=== PATIENT | female | born 1935 | race Caucasian/White ===

== ENCOUNTER 2016-12-07 14:29 | Observation (INO) | payer MEDICARE ==
[2016-12-07 15:05] LABS: #Eosinphils 0.3 thou/uL (0.0-0.7); #Lymphocytes 2.6 thou/uL (1.20-3.40); #Monocytes 1.1 thou/uL (0.11-0.59); #Neutrophils 8.7 thou/uL (1.40-6.50); %Basophils 0.3 % (0.0-1.0); %Eosinophils 2.6 % (0.0-10.0); %Lymphocytes 20.4 % (21.0-51.0); %Monocytes 8.6 % (0.0-10.0); Hematocrit 47.9 % (36.0-47.0); Mean Platelet Volume 9.3 fL (7.4-10.4); Red Blood Cell (RBC) Count 5.16 mill/uL (4.20-5.40); White Blood Cell (WBC) Count 12.8 thou/uL (4.8-10.8)
[2016-12-07] MEDS ORDERED: Metoprolol Tartrate 5 MG/5 ML VIAL ONE (15:21)
[2016-12-07 15:30] LABS: ALT (SGPT) 16 U/L (8-55); AST (SGOT) 26 U/L (5-34); Alkaline Phosphatase 87 U/L (40-150); Anion Gap 15 mmol/L (10-20); BUN (Urea Nitrogen) 22 mg/dL (9.8-20.1); Bilirubin, Total 0.8 mg/dL (0.2-1.2); CK (CPK) 59 U/L (29-168); Calc. Creatinine Clearance 0 mL/min (70-130); Calcium 11.1 mg/dL (7.8-10.44); Carbon Dioxide 24 mmol/L (23-31); Chloride 102 mmol/L (98-107); Estimated GFR-MDRD 56; Globulin 4.1 g/dL (2.4-3.5); Lipase 24 U/L (8-78); Protein, Total 9.3 g/dL (6.0-8.3)
[2016-12-07 15:34] LABS: Troponin I Less than 0.010 ng/mL (< 0.028)
--- NOTE | 2016-12-07 15:42 | RAD ---
PORTABLE AP CHEST: Date: 12-07-16 History: Heart palpitations. Atrial fibrillation after exercising. FINDINGS: Cardiac silhouette is magnified by projection but is at the upper limits of normal to borderline inc reased in size. Pulmonary vasculature is within normal limits. There is an epicardial fat pad at the left lung base. Lungs are otherwise clear. There appears to be a rim of osteophytes involving the l eft humeral head. Vascular calcifications seen in the thoracic aorta. IMPRESSION: No acute cardiopulmonary process. POS: MAU
[2016-12-07 18:55] LABS: Troponin I 0.031 ng/mL (< 0.028)
[2016-12-07] MEDS ORDERED: Enoxaparin Sodium 60 MG/0.6 ML SYRINGE ONE (19:17)
[2016-12-07] MEDS ORDERED: Enoxaparin Sodium 80 MG/0.8 ML SYRINGE SC SCH (21:00)
[2016-12-07] MEDS ORDERED: Enoxaparin Sodium 80 MG/0.8 ML SYRINGE SC ONE (21:00)
[2016-12-07] MEDS ORDERED: Acetaminophen 325 MG TAB PO PRN (21:10)
[2016-12-07] MEDS ORDERED: hydrALAZINE 20 MG/ML VIAL SLOW IVP PRN (21:10)
[2016-12-07] MEDS ORDERED: HYDROcodone/Acetaminophen 5/325 mg Tablet PO PRN (21:10)
[2016-12-07] MEDS ORDERED: Nitroglycerin 0.4 MG TAB (25 Tab Bottle) SL PRN (21:10)
[2016-12-07] MEDS ORDERED: Zolpidem Tartrate 5 MG TAB PO PRN (21:10)
[2016-12-07] MEDS ORDERED: Sodium Chloride 0.9% 1,000 ML IV SCH (21:10)
[2016-12-07] MEDS ORDERED: Ondansetron HCl/PF 4 MG/2 ML Vial IVP PRN (21:10)
[2016-12-07 23:00] VITALS: BMI 29.9
--- NOTE | 2016-12-07 23:25 | HP ---
CHIEF COMPLAINT: Palpitations. HISTORY OF PRESENT ILLNESS: This is an 81-year-old pleasant lady, who was at [facility] AV valve replacement done on 09/29/[address] Aguilar, was doing physical therapy and really had a good session. When she went and rested, the alarm went off and she found herself to be a little we ak and shortness of breath and with a heart rate in the 140s. The patient was sent to our emergency room for further evaluation and treatment. The patient denies any fever or chills, admits to some diarrhea, because she thinks she takes laxatives on daily basis. No chest pain, no shortness of sarah ath. PAST MEDICAL HISTORY: Significant for high blood pressure, AV value replacement. PAST SURGICAL HISTORY: Aortic valve replacement on 09/2016, exploratory laparotomy done at age 18 l joby time back, appendectomy, hysterectomy, tonsillectomy, and bilateral knee replacement. SOCIAL HISTORY: Does not smoke, drink, or do recreational drugs. ALLERGIES: Allergic to COREG, which gives her bradycardia. PENICILLIN gives her rash. MEDICATIONS: Norvasc, Synthroid, statin, lisinopril, Plavix. FAMILY HISTORY: Negative for diabetes and hypertension. REVIEW OF SYSTEMS: Significant for no fever, no chills, no headache, no eye pain, no hearing loss, no latencies. No cough, no chest pain. Cardiovascular: As per HPI. Positive for diarrhea, no dys uria, no polyuria, no memory or mood changes noted. PHYSICAL EXAMINATION: VITAL SIGNS: Blood pressure is 122/51, pulse of 78, respirations 18, 98 degrees. GENERAL: Patient is lying in bed in no apparent distress. HEENT: Atraumatic and normocephalic. Pupils equally round, react to light. Extraocular movements intact. Mucous membranes moist. NECK: Supple. No JVD. CHEST: Breath sounds heard. There are no rales or rhonchi. HEART: S1, S2 normal, irregularly irregular rhythm. ABDOMEN: Soft, obese. EXTREMITIES: No cyanosis, clubbing, edema. Distal pulses present. NEUROLOGIC: Alert, awake, oriented. No cranial deficits. No sensorimotor deficits. LABORATORY DATA: WBC count is 12.8, hemoglobin is 15.4. Chest x-ray is negative. Troponin 0.03. CK is 59. Potassium is 3.7, creatinine is 0.9, calcium is 11.1, albumin is 5.2. ASSESSMENT AND PLAN: 1. Atrial fibrillation with rapid ventricular response. The patient got IV metoprolol and IV Cardi zem in the ER, and her heart rate right now is 65. Patient will be put on Plavix. We will continue the Plavix from home medications and give her 1 dose of Lovenox and follow Cardiology recommendatio ns. We will do echocardiogram and check thyroid function status post AV placement. We will follow Cardiology plan. 2. Hypothyroidism. Continue Synthroid. 3. Hyperlipidemia, stable. 4. Hypertension, stable. We will do UA, Lovenox for deep venous thrombosis prophylaxis. I will wo rk with Cardiology and further caring for the patient.
[2016-12-07 23:34] LABS: Bilirubin Negative (Negative); Blood, Urine Negative (Negative); Glucose, Urine (Dipstick) Negative (Negative); Ketone, Urine Negative (Negative); Nitrite Negative (Negative); Protein, Urine (Dipstick) Negative (Neg-Trace); Urobilinogen 0.2 mg/dL (0.2-1.0)
[2016-12-07 23:37] LABS: Bacteria/HPF None Seen HPF (None Seen); Hyaline Casts/LPF 0-3 HYALINE CAST LPF (0-3 Hyaline); RBC/HPF 0-3 HPF (0-3); Squamous Epithelial 0-3 HPF (0-3)
[2016-12-07] MEDS ORDERED: ALPRAZolam 1 MG TAB PO PRN (23:55)
[2016-12-08] MEDS ORDERED: Amlodipine 5 MG TAB PO SCH ×2 (00:15→09:00)
[2016-12-08] MEDS ORDERED: Lisinopril 20 MG TAB PO SCH ×2 (00:15→09:00)
[2016-12-08] MEDS ORDERED: Simvastatin 20 MG TAB PO SCH ×2 (00:15→21:00)
[2016-12-08 04:47] LABS: #Eosinphils 0.2 thou/uL (0.0-0.7); #Lymphocytes 1.5 thou/uL (1.20-3.40); #Neutrophils 7.7 thou/uL (1.40-6.50); %Basophils 0.1 % (0.0-1.0); %Eosinophils 1.6 % (0.0-10.0); %Lymphocytes 14.4 % (21.0-51.0); %Monocytes 10.1 % (0.0-10.0); Hematocrit 39.8 % (36.0-47.0); Mean Platelet Volume 9.3 fL (7.4-10.4); Red Blood Cell (RBC) Count 4.32 mill/uL (4.20-5.40); White Blood Cell (WBC) Count 10.4 thou/uL (4.8-10.8)
[2016-12-08] MEDS ORDERED: Levothyroxine Sodium 50 MCG TAB PO SCH (06:00)
[2016-12-08 06:58] LABS: Anion Gap 11 mmol/L (10-20); BUN (Urea Nitrogen) 21 mg/dL (9.8-20.1); Calc. Creatinine Clearance 59 mL/min (70-130); Calcium 9.4 mg/dL (7.8-10.44); Carbon Dioxide 24 mmol/L (23-31); Chloride 107 mmol/L (98-107); Estimated GFR-MDRD 70
[2016-12-08] MEDS ORDERED: Clopidogrel Bisulfate 75 MG TAB PO SCH (09:00)
--- NOTE | 2016-12-08 13:01 | PDOC.PN ---
- Subjective Encounter Start Date: 12/08/16 Encounter Start Time: 12:59 Patient seen and examined. No new complaints. No overnight events - Objective MAR Reviewed: Yes Vital Signs & Weight: Vital Signs (12 hours) Temp Pulse Resp BP BP Pulse Ox 12/08/16 11:02 98.6 F 62 16 145/61 H 98 12/08/16 09:32 58 L 132/70 12/08/16 07:25 98.7 F 58 L 16 132/70 98 12/08/16 07:15 98.7 F 73 14 12/08/16 04:04 98.7 F 73 14 151/72 H 97 12/08/16 01:33 95 Weight Weight 153 lb 1 oz I&O: 12/07/16 12/08/16 12/09/16 06:59 06:59 06:59 Intake Total 500 Output Total 425 Balance 75 Result Diagrams: 12/08/16 04:00 12/08/16 04:00 Phys Exam - Physical Examination Constitutional: NAD HEENT: PERRLA Neck: no JVD Respiratory: no wheezing Cardiovascular: no significant murmur Gastrointestinal: non-tender Musculoskeletal: pulses present Neurological: normal sensation Psychiatric: A&O x 3 Skin: normal turgor Dx/Plan (1) SVT (supraventricular tachycardia) Code(s): I47.1 - SUPRAVENTRICULAR TACHYCARDIA Status: Acute (2) Dehydration Code(s): E86.0 - DEHYDRATION Status: Acute (3) S/p TAVR (transcatheter aortic valve replacement), bioprosthetic Code(s): Z95.3 - PRESENCE OF XENOGENIC HEART VALVE Status: Acute (4) HTN (hypertension) Code(s): I10 - ESSENTIAL (PRIMARY) HYPERTENSION Status: Acute (5) Hypothyroid Code(s): E03.9 - HYPOTHYROIDISM, UNSPECIFIED Status: Acute - Plan * rate controlled * f/u card plan
--- NOTE | 2016-12-08 14:53 | EKG ---
Test Reason : Blood Pressure : / mmHG Vent. Rate : 079 BPM Atrial Rate : 079 BPM P-R Int : 206 ms QRS Dur : 094 ms QT Int : 374 ms P-R-T Axes : 076 010 047 degrees QTc Int : 428 ms Sinus rhythm with Premature atrial complexes Septal infarct , age undetermined cannot be excluded Nonspecific ST abnormalty Abnormal ECG Confirmed by OUSMANE CHRISTIANSON ([id number]) on 12/08/2016 2:53:09 PM Referred By: VIRAJ Confirmed By:OUSMANE CHRISTIANSON
[2016-12-08 15:46] VITALS: BP 167/86; TEMP 97.9
--- NOTE | 2016-12-09 05:46 | ADD-CON ---
ADDENDUM DATE OF CONSULTATION: 12/08/2016 DATE OF ADMISSION: 12/07/2016 INDICATION FOR CONSULTATION: An 81-year-old female with palpitations. HISTORY OF PRESENT ILLNESS: This very pleasant 81-year-old female who has been followed by me for s everal years. She recently underwent a TAVR, implantation of aortic valve due to severe aortic valv e stenosis for which she had followed for many years until she started beginning more symptomatic an d then she was decided that she need to undergo valve replacement. She had been doing very well sin ce the valve replacement and had gone to rehabilitation yesterday and noticed that she was getting s omewhat fatigued and short of breath and had fast heart rate and she was then presented to the emerg ency room and was found to have a rapid heart rate, which appears to be possible atrial flutter, but since then has converted back to sinus rhythm with a regular rate. She is feeling fine and wants t o go home. She denies any significant chest discomfort or any other symptoms. She has been doing w ell. She denied any other complaints and has been very happy with the aortic valve replacement. At this time, her examination is unremarkable. She has a regular rate and rhythm. Her chest is clear . There is no lower extremity edema and has no significant aortic valve murmur. This has now resol deion. Please refer to the notes already dictated by the nurse practitioner. I would agree with her assessment and plan. She will be monitored for any further rapid heart rate at home by her family m embers or herself and also she will be monitored at the rehabilitation center when she presents ther e for her rehabilitation. Should she have further episodes, she may need to undergo further evaluat ion, possibly even an ablation. We will need to see if we can adjust her medications. She has been taking diltiazem. We will need to reinstate this medication as well as possibly even low dose of b eta blockers. Her vital signs have been stable. Her blood pressure stays on the high side anywhere between 132/71 to 167/86. Her heart rate is in the 50s-80s. At this time, she remains in sinus rh ythm. We will make the decision prior to discharge as far as she will need to be started on beta-bl ockers. She had no significant history of coronary artery disease in the past. As long as she does not become severely bradycardic, she may do well with low dose of beta blockers. If not, then cert ainly we may try also calcium blockers in the form of diltiazem if necessary.
--- NOTE | 2016-12-09 05:47 | DIS ---
DATE OF ADMISSION: 12/07/2016 DATE OF DISCHARGE: 12/08/2016 DIAGNOSES ON DISCHARGE: 1. Supraventricular tachycardia. 2. Hypothyroidism. 3. Hyperlipidemia. 4. Hypertension. 5. Status post transcatheter aortic valve replacement. BRIEF HOSPITAL COURSE: This is an 81-year-old pleasant lady who was apparently in her usual state o f health, was doing rehabilitation after the TAVR when she started having some palpitations. She wa s brought to the emergency room for that. EKG showed an undetermined rhythm with a rate of 140. It looked like atrial fibrillation when she came in, and then she was given Cardizem and the rhythm sl owed down. She was admitted further to the hospital for this for monitoring. She was given p.o. Ca rdizem 30 mg p.o. q.6 hours and Cardiology evaluated her. They checked the rhythm, and thought that it was probably just a SVT, which had been precipitated by some dehydration, and after the hydratio n and the Cardizem use, had come back to normal. They recommended for now, no Cardizem for now or a ny antiarrhythmics for now. This had good blood pressure control, hydration, and outpatient followu p with Cardiology would be the planned next step. The patient is feeling much better. Right now, s he is good to go back to the rehab, and continue physical therapy. She is asked to come back to the emergency room in case symptoms recur. Total time for this discharge took 35 minutes. DISCHARGE MEDICATIONS: Discharge medications are the same as admit medications.
== END 2016-12-08 17:07 | disposition home or self-care (01) ==
LOC: ERS 14:29 → 2SW 20:55
PROVIDERS: ADMIT Internal Medicine; ATTEND Internal Medicine
DX: I47.1 Supraventricular tachycardia (principal); E03.9 Hypothyroidism, unspecified; E78.5 Hyperlipidemia, unspecified; I10 Essential (primary) hypertension; I48.91 Unspecified atrial fibrillation; E86.0 Dehydration; Z79.02 Long term (current) use of antithrombotics/antiplatelets; Z79.899 Other long term (current) drug therapy; Z88.0 Allergy status to penicillin; Z88.8 Allergy status to other drugs, medicaments and biological substances; Z96.653 Presence of artificial knee joint, bilateral; Z95.3 Presence of xenogenic heart valve; Z90.49 Acquired absence of other specified parts of digestive tract; Z90.710 Acquired absence of both cervix and uterus; Z98.890 Other specified postprocedural states
CPT/HCPCS: 71010; 80048; 81001; 82550; 82553; 83630; 83690; 84484 ×2; 85025; 87015; 87045; 87046; 87324; 87449 ×2; 87899 ×2; 93005 ×2; 93798; 96372; 96374; 96375; 99285; G0378; 36415; 80053; 84443; 93010; J1650

== ENCOUNTER 2016-12-13 16:19 | Inpatient (IN) | payer MEDICARE ==
[2016-12-13] MEDS ORDERED: Enoxaparin Sodium 80 MG/0.8 ML SYRINGE ONE (17:29)
[2016-12-13] MEDS ORDERED: Piperacillin/Tazobactam 4.5 GM VIAL ONE (17:38)
[2016-12-13] MEDS ORDERED: Ondansetron ODT 4 MG TAB PO PRN (17:42)
[2016-12-13] MEDS ORDERED: HYDROcodone/Acetaminophen 5/325 mg Tablet PO PRN (17:42)
[2016-12-13] MEDS ORDERED: Acetaminophen 325 MG TAB PO PRN (17:42)
[2016-12-13] MEDS ORDERED: HYDROcodone/Acetaminophen 10/325 mg Tablet PO PRN (17:42)
[2016-12-13 18:36] LABS: Troponin I 0.032 ng/mL (< 0.028)
[2016-12-13 20:36] LABS: Troponin I 0.021 ng/mL (< 0.028)
[2016-12-13] MEDS ORDERED: traZODone HCl 50 MG TAB PO SCH (21:00)
[2016-12-13] MEDS ORDERED: Enoxaparin Sodium 80 MG/0.8 ML SYRINGE SC SCH (21:00)
--- NOTE | 2016-12-13 21:25 | HP ---
DATE OF ADMISSION: 12/13/2016 PRIMARY CARE PHYSICIAN: Alexey Marquez M.D., out of town. His phone number is [phone]. CHIEF COMPLAINT: Palpitations. HISTORY OF PRESENT ILLNESS: Ms. Bray is a pleasant 81-year-old female with a history of hyperten adia, aortic valve replacement, hypothyroidism, osteopenia, and previous atrial fibrillation. The trevor flanagan was actually admitted here from 12/07/2016-12/08/2017 for atrial fibrillation with rapid vent ricular response. She was seen by Dr. Ventura, but apparently spontaneously converted and was sent hussein e. Today, she had the acute onset of palpitations, was seen at the outside ER and found to have a h eart rate in the 150s and atrial fibrillation again. She was subsequently transferred here for furt her workup. She denies any chest pain or shortness of breath, no nausea, vomiting, diarrhea, consti pation. No fevers, chills or sweats. No sputum production. In the emergency department out at the outside facility, she was given 10 mg bolus of Cardizem x2 an d started on a Cardizem drip. On arrival here, heart rates are controlled in the low 100s. She is currently feeling better, however, the workup was otherwise negative. She has no other current comp laints. PAST MEDICAL HISTORY: 1. Hypertension. 2. Aortic valve replacement by Dr. Aguilar. 3. Hypothyroidism. 4. Osteopenia. 5. Paroxysmal atrial fibrillation, now. PAST SURGICAL HISTORY: Includes, 1. Percutaneous aortic valve replacement in 09/2016. 2. Exploratory laparotomy in 1953. 3. Appendectomy. 4. Hysterectomy. 5. Bilateral total knee arthroplasty. 6. Tonsillectomy. HOME MEDICATIONS: 1. Norvasc 5 mg p.o. b.i.d. 2. Synthroid 50 mcg daily. 3. Lisinopril, she thinks 40 mg b.i.d. 4. Plavix 75 mg p.o. q.a.m. 5. Fosamax 75 mg every week. 6. Xanax 1 mg p.o. at bedtime. 7. Aspirin 81 mg p.o. q.p.m. ALLERGIES: COREG causes bradycardia. PENICILLIN causes rash. FAMILY HISTORY: Negative for diabetes, hypertension, clots or bleeding. SOCIAL HISTORY: Negative for habits x3. REVIEW OF SYSTEMS: A 10-point review of systems was performed and negative for all other systems ex cept as stated as per HPI. PHYSICAL EXAMINATION: VITAL SIGNS: Temperature 98.7, pulse 108, blood pressure 134/69, respiratory rate 19, and satting 9 8% on room air. GENERAL: She is awake. She is alert. She is oriented x3. She is an obese, elderly female who alfonso ears to be in no acute distress. HEENT: Normocephalic and atraumatic. Pupils equal and reactive bilaterally. Mucous membranes are moist. No visible lesions. No thrush. NECK: Supple. She had no lymphadenopathy, JVD or thyromegaly with normal carotid upstrokes. She h as no bruits. CHEST: Lungs are clear to auscultation bilaterally. She has some faint bibasilar crackles that tanner ar with deep inspiration. She has no prolonged expiratory phase. CARDIOVASCULAR: Has an irregularly irregular rate, is slightly tachycardic. She has a faint 2-3/6 systolic ejection murmur. I do not hear any diastolic murmurs. ABDOMEN: Obese, is nontender and nondistended. I cannot palpate internal organs. She has no rebou nd, rigidity or guarding with normoactive bowel sounds. EXTREMITIES: Show no cyanosis, no clubbing, no edema. MUSCULOSKELETAL: Normal to inspection. She has joints that are uninflamed without palpable joint e ffusions. Her previous incisions are well healed. NEUROLOGIC: Cranial nerves II-XII are grossly intact without any focal neurologic deficits, she has a normal speech pattern, and 5/5 strength. SKIN: Warm, moist, and well perfused. She has no rashes or lesions. LABORATORY EVALUATION: CMP is within normal limits. Glucose 187. BNP slightly elevated at 186. T roponin I was normal at 0.032 and INR was 1.1. RADIOGRAPHIC STUDIES: Chest x-ray, portable showed no acute cardiopulmonary disease. ASSESSMENT AND PLAN: 1. Paroxysmal atrial fibrillation. The patient is currently back in atrial fibrillation. She is s table on her current Cardizem drip, so we will continue. We will ask Dr. Aguilar to evaluate her. Tro naveen was negative, but will trend these over the next 12-16 hours. We will watch on telemetry and placed in observation. 2. Hypertension, on Norvasc, lisinopril. We will continue these for now. 3. Osteopenia, on Fosamax, we will hold. 4. Hypothyroidism on Synthroid. We will check a TSH. 5. History of aortic valve replacement by Dr. Aguilar. Currently, appears stable. We will place the patient on gastrointestinal and deep venous thrombosis with Lovenox 40 mg subcu da saravanan and on for gastrointestinal prophylaxis, Pepcid 20 mg p.o. b.i.d.
[2016-12-13 21:32] VITALS: BMI 29.6
[2016-12-13] MEDS: Famotidine 20 MG TAB PO SCH (21:54)
[2016-12-14] MEDS: Diltiazem HCl 125 MG, Admixture Fee 1 EACH in Sodium Chloride 0.9% 100 ML SLOW IVP SCH ×2 (04:06→17:01)
[2016-12-14 04:53] LABS: #Basophils 0.1 thou/uL (0.0-0.2); #Eosinphils 0.3 thou/uL (0.0-0.7); #Lymphocytes 1.6 thou/uL (1.20-3.40); #Monocytes 0.9 thou/uL (0.11-0.59); #Neutrophils 6.3 thou/uL (1.40-6.50); %Basophils 0.7 % (0.0-1.0); %Eosinophils 2.8 % (0.0-10.0); %Lymphocytes 17.7 % (21.0-51.0); %Monocytes 9.6 % (0.0-10.0); Hematocrit 38.1 % (36.0-47.0); Mean Platelet Volume 8.8 fL (7.4-10.4); Red Blood Cell (RBC) Count 4.14 mill/uL (4.20-5.40); White Blood Cell (WBC) Count 9.1 thou/uL (4.8-10.8)
[2016-12-14 05:08] LABS: Anion Gap 12 mmol/L (10-20); BUN (Urea Nitrogen) 16 mg/dL (9.8-20.1); Calc. Creatinine Clearance 60 mL/min (70-130); Calcium 9.2 mg/dL (7.8-10.44); Carbon Dioxide 21 mmol/L (23-31); Chloride 112 mmol/L (98-107); Estimated GFR-MDRD 72; Magnesium 2.1 mg/dL (1.6-2.6)
[2016-12-14 05:15] LABS: Troponin I 0.029 ng/mL (< 0.028)
[2016-12-14] MEDS: Famotidine 20 MG TAB PO SCH ×2 (08:44→22:00)
[2016-12-14] MEDS: Enoxaparin Sodium 80 MG/0.8 ML SYRINGE SC SCH ×2 (08:44→22:01)
--- NOTE | 2016-12-14 10:05 | PDOC.PN ---
- Subjective Encounter Start Date: 12/14/16 Encounter Start Time: 10:03 Patient seen at bedside. No further palpitations, no SOB or C/P. Still remains on Cardizem drip. - Objective Resuscitation Status: Resuscitation Status FULL:Full Resuscitation MAR Reviewed: Yes Vital Signs & Weight: Vital Signs (12 hours) Temp Pulse Resp BP 12/14/16 04:00 98.1 F 77 18 110/59 L Weight Weight 151 lb 3.2 oz I&O: 12/13/16 12/14/16 12/15/16 06:59 06:59 06:59 Intake Total 220 Output Total 600 Balance -380 Result Diagrams: 12/14/16 04:17 12/14/16 04:17 Phys Exam - Physical Examination Constitutional: NAD HEENT: moist MMs Neck: no JVD Respiratory: clear to auscultation bilateral Cardiovascular: irregular Gastrointestinal: soft, non-tender Musculoskeletal: pulses present Neurological: moves all 4 limbs Psychiatric: normal affect, A&O x 3 Dx/Plan (1) Atrial fibrillation Code(s): I48.91 - UNSPECIFIED ATRIAL FIBRILLATION Status: Acute Qualifiers: Atrial fibrillation type: paroxysmal Qualified Code(s): I48.0 - Paroxysmal atrial fibrillation (2) HTN (hypertension) Code(s): I10 - ESSENTIAL (PRIMARY) HYPERTENSION Status: Acute Qualifiers: Hypertension type: essential hypertension Qualified Code(s): I10 - Essential (primary) hypertension (3) Hypothyroid Code(s): E03.9 - HYPOTHYROIDISM, UNSPECIFIED Status: Acute - Plan cont current plan of care, social media community manager, out of bed/ambulate * Continue with Cardizem GTT. * Will require anticoagulation for CVA prophylaxis. Currently on Lovenox * Check TSH * Await cardiology input (further chemical intervention vs CARY vs RFA)
[2016-12-14] MEDS: Bisacodyl 5 MG TAB PO PRN (13:34)
[2016-12-14] MEDS ORDERED: Amiodarone HCl 450 MG in Dextrose 5% in Water 250 ML IVPB SCH ×2 (16:15)
[2016-12-14] MEDS ORDERED: Amiodarone HCl 150 MG, Admixture Fee 1 EACH in Dextrose 5% in Water 100 ML IVPB SCH ×3 (16:30)
[2016-12-14 18:14] LABS: ALT (SGPT) 19 U/L (8-55); AST (SGOT) 19 U/L (5-34); Alkaline Phosphatase 52 U/L (40-150); Bilirubin, Direct 0.2 mg/dL (0.1-0.3); Bilirubin, Total 0.5 mg/dL (0.2-1.2); Protein, Total 6.3 g/dL (6.0-8.3)
[2016-12-14 18:18] LABS: Prothrombin Time 14.3 SEC (12.0-14.7)
[2016-12-14] MEDS: Warfarin Sodium 5 MG TAB PO SCH (19:27)
[2016-12-14] MEDS ORDERED: Simvastatin 5 MG TAB PO SCH (21:00)
[2016-12-14] MEDS ORDERED: Temazepam 15 MG CAP PO SCH (21:00)
[2016-12-14] MEDS: Simvastatin 5 MG TAB PO SCH ×2 (22:00→22:18)
[2016-12-14] MEDS: Amlodipine 5 MG TAB PO SCH (22:01)
--- NOTE | 2016-12-14 22:03 | CON ---
DATE OF CONSULTATION: 12/14/2016 HISTORY OF PRESENT ILLNESS: Maureen Bray is a pleasant 81-year-old white female with a history of severe aortic stenosis. She is status post TAVR [place] [address] Aguilar. She presented on 11/2016, with rapid heartbeat after finishing her cardiac rehab session. She was in atrial fibrillation with heart rate was up to 150 per minute. She converted back to sinus rhythm, heart rates in the 70s and was released the following day. Yesterday, she then had onset again of rapid heart beat with heart rates up to the 150s. She was seen at [facility] in [place] and then transferred here. She has been on Cardizem 10 mg IV per hour and has continued to have heart rates in the 110s to 120s. She denies any chest discomfort, but just has a "feeling" in her chest when her heart is beating rapidly. She denies any dyspnea, nausea, vomiting, or diaphoresis. PAST MEDICAL HISTORY: Hypertension, hypercholesterolemia, hypothyroidism, history of multiple UTIs, macular degeneration, aortic stenosis, status post TAVR. OPERATIONS: TAVR in 09/2016, exploratory laparotomy, appendectomy, hysterectomy , bilateral total knee replacements, and tonsillectomy. MEDICATIONS: Amlodipine 5 mg b.i.d., simvastatin 10 at bedtime, Mobic 7.5 mg daily, Plavix 75 mg daily, lisinopril 20 b.i.d., levothyroxine 50 mcg daily, and aspirin 81 daily. SOCIAL HISTORY: She does not smoke or drink. FAMILY HISTORY: Negative for coronary artery disease. REVIEW OF SYSTEMS: A 12-point review of systems otherwise was unremarkable. PHYSICAL EXAMINATION: VITAL SIGNS: Blood pressure 137/60, pulse of 100. HEENT: PERRL. NECK: Supple. LUNGS: Chest is clear. CARDIAC: Irregularly irregular rhythm. S1 and S2 are normal, without any S3 or S4. There is a 2/6 systolic ejection murmur in the aortic area. ABDOMEN: Normal bowel sounds, without tenderness. EXTREMITIES: Revealed no clubbing, cyanosis, or edema. NEUROLOGIC: Grossly intact. SKIN: Warm and dry. LABORATORY AND X-RAY FINDINGS: EKG reveals atrial fibrillation with rate of 109 per minute with nonspecific ST and T-wave changes. CBC is unremarkable. Sodium 141, potassium 3.8, chloride 112, carbon dioxide 21, BUN 16, creatinine 0.77. Troponin I 0.032. TSH last week was normal. IMPRESSION: 1. Second episode of atrial fibrillation with fast ventricular response. 2. Mildly elevated troponin I secondary to demand ischemia. She apparently had normal coronary arteries. 3. Hypertension. 4. Hyperlipidemia. 5. Hypothyroidism. 6. Status post transcatheter aortic valve replacement. PLAN: The patient is on Lovenox 1 mg/kg q.12 hours for stroke prophylaxis. With her aortic valve replacement, she is only a candidate for long-term anticoagulation with Coumadin and she will be started on that tonight since it will take several days for become therapeutic. With her continued rapid heart rate up to 120s to 130s at times even on Cardizem 10 mg per hour, I will institute therapy with intravenous amiodarone, hopefully to slow her rate and potentially even convert her. If not, then she may need to undergo electrical cardioversion. MTDD
[2016-12-15 05:24] LABS: Prothrombin Time 14.9 SEC (12.0-14.7)
[2016-12-15] MEDS ORDERED: FLU VACC TS2017-18 (>65YR) 0.5 ML SYRINGE IM ONE (09:00)
[2016-12-15] MEDS: Clopidogrel Bisulfate 75 MG TAB PO SCH (09:25)
[2016-12-15] MEDS: Aspirin 81 mg Enteric Coated Tablet PO SCH (09:25)
[2016-12-15] MEDS: Famotidine 20 MG TAB PO SCH ×2 (09:26→21:32)
[2016-12-15] MEDS: Enoxaparin Sodium 80 MG/0.8 ML SYRINGE SC SCH ×2 (09:26→21:31)
[2016-12-15] MEDS: Amlodipine 5 MG TAB PO SCH ×2 (09:26→21:32)
--- NOTE | 2016-12-15 10:56 | PDOC.PN ---
- Subjective Encounter Start Date: 12/15/16 Encounter Start Time: 10:54 Patient seen at bedside. Overnight, the patient converted to NSR and both amiodarone and diltiazem were discontinued. Currently no new complaints. - Objective Resuscitation Status: Resuscitation Status FULL:Full Resuscitation MAR Reviewed: Yes Vital Signs & Weight: Vital Signs (12 hours) Temp Pulse Resp BP Pulse Ox 12/15/16 09:26 66 12/15/16 04:00 98.2 F 60 16 137/59 L 98 Weight Weight 153 lb I&O: 12/14/16 12/15/16 12/16/16 06:59 06:59 06:59 Intake Total 220 720 Output Total 600 500 Balance -380 220 Result Diagrams: 12/14/16 04:17 12/14/16 04:17 Phys Exam - Physical Examination Constitutional: NAD HEENT: moist MMs Neck: no JVD Respiratory: no wheezing, clear to auscultation bilateral Cardiovascular: RRR Gastrointestinal: non-tender Musculoskeletal: pulses present Neurological: moves all 4 limbs Psychiatric: A&O x 3 Dx/Plan (1) Atrial fibrillation Code(s): I48.91 - UNSPECIFIED ATRIAL FIBRILLATION Status: Acute Qualifiers: Atrial fibrillation type: paroxysmal Qualified Code(s): I48.0 - Paroxysmal atrial fibrillation (2) HTN (hypertension) Code(s): I10 - ESSENTIAL (PRIMARY) HYPERTENSION Status: Acute Qualifiers: Hypertension type: essential hypertension Qualified Code(s): I10 - Essential (primary) hypertension (3) Hypothyroid Code(s): E03.9 - HYPOTHYROIDISM, UNSPECIFIED Status: Acute - Plan cont current plan of care, long term care social worker * Continue with Lovenox and Warfarin. Unable to use Novel Anticoagulants due to hx of valve. * Currently not requiring rate controlling agents (monitor vs maintenance) * Daily INR
[2016-12-15] MEDS: Warfarin Sodium 5 MG TAB PO SCH (17:05)
[2016-12-15] MEDS: Bisacodyl 5 MG TAB PO PRN (17:05)
--- NOTE | 2016-12-15 17:23 | PDOC.CTH ---
<Johanna Velazquez - Last Filed: 12/15/16 17:25> Cardiology Progress Note - Subjective The pt seen and examined. No overnight events. No cardiac complaints. She complains of lack of sleep due to noise from machines last night. - Objective Vital Signs Temp Pulse Resp BP BP Pulse Ox 12/15/16 11:05 97.5 F L 71 18 140/62 100 12/15/16 09:26 66 12/15/16 08:20 98.2 F 66 16 157/67 H 98 Weight 153 lb 12/14/16 12/15/16 12/16/16 06:59 06:59 06:59 Intake Total 220 720 Output Total 600 500 Balance -380 220 - Physical Examination General/Neuro: alert & oriented x3 Neck: no JVD present Lungs: CTA Heart: RRR Abdomen: soft Extremities: other: (No edemas) - Telemetry Telemetry Rhythm: SR - Labs Result Diagrams: 12/14/16 04:17 12/14/16 04:17 Troponin/CKMB CK-MB (CK-2) 2.1 ng/mL (0-6.6) 12/14/16 04:17 Troponin I 0.029 ng/mL (< 0.028) H 12/14/16 04:17 - Assessment/Plan 1. Afib with RVR - Remain SR with well controlled HR; Start Amiodarone 200mg BID ; on Coumadin, which dosage managed by pharmacy: INR today was 1.2 2. with s/p TAVR in 09/2016 - Stable with Plavix; cont. monitor 3. HTN - stable with current medication; cont. monitor 4. Dyslipidemia - on Statin med; 5. Hypothyroid - managed by PCP MAR reviewed Review of Systems - Review of Systems Constitutional: reports: no symptoms reported EENTM: reports: no symptoms reported Respiratory: reports: no symptoms reported Cardiac (ROS): reports: no symptoms reported ABD/GI: reports: no symptoms reported : reports: no symptoms reported Musculoskeletal: reports: no symptoms reported Skin: reports: no symptoms reported Neurological: reports: no symptoms reported <Harish Ventura - Last Filed: 12/15/16 19:23> Cardiology Progress Note - Objective Vital Signs Temp Pulse Resp BP BP Pulse Ox 12/15/16 16:00 97.8 F 153/61 H 12/15/16 11:05 97.5 F L 71 18 140/62 100 12/15/16 09:26 66 12/15/16 08:20 98.2 F 66 16 157/67 H 98 Weight 153 lb 12/14/16 12/15/16 12/16/16 06:59 06:59 06:59 Intake Total 220 720 Output Total 600 500 Balance -380 220 - Labs Result Diagrams: 12/14/16 04:17 12/14/16 04:17 Troponin/CKMB CK-MB (CK-2) 2.1 ng/mL (0-6.6) 12/14/16 04:17 Troponin I 0.029 ng/mL (< 0.028) H 12/14/16 04:17 - Assessment/Plan Pt. was seen and evaluated by me. I had a long discussion with the pt.about the need to remain in the hospital as she wants to go home. I agree with the A/P by the EVENTS TRAFFIC CONTROLLER. I spoke with EP regarding this pt. and the recurrent Afib. Plan to start po. amiodarone. She is in NSR at this time.
[2016-12-15] MEDS ORDERED: diphenhydrAMINE 25 MG CAP PO PRN (20:00)
[2016-12-15] MEDS ORDERED: hydrALAZINE 20 MG/ML VIAL SLOW IVP SCH (20:00)
[2016-12-15] MEDS ORDERED: hydrALAZINE 20 MG/ML VIAL SLOW IVP PRN (20:00)
[2016-12-15] MEDS: ALPRAZolam 0.5 MG TAB PO PRN (22:39)
[2016-12-16 07:42] LABS: Prothrombin Time 16.4 SEC (12.0-14.7)
--- NOTE | 2016-12-16 09:56 | PDOC.PN ---
- Subjective Encounter Start Date: 12/16/16 Encounter Start Time: 09:54 Patient seen at bedside. No overnight events, no new complaints. - Objective Resuscitation Status: Resuscitation Status FULL:Full Resuscitation MAR Reviewed: Yes Vital Signs & Weight: Vital Signs (12 hours) Temp Pulse Resp BP Pulse Ox 12/16/16 07:20 98.7 F 66 18 129/76 98 12/16/16 04:00 97.6 F 74 18 186/77 H 98 12/16/16 00:37 71 Weight Weight 150 lb I&O: 12/15/16 12/16/16 12/17/16 06:59 06:59 06:59 Intake Total 720 1200 Output Total 500 1500 Balance 220 -300 Result Diagrams: 12/14/16 04:17 12/14/16 04:17 Phys Exam - Physical Examination Constitutional: NAD HEENT: moist MMs Neck: no JVD Respiratory: no rales Cardiovascular: RRR Gastrointestinal: soft Musculoskeletal: pulses present Neurological: moves all 4 limbs Psychiatric: normal affect, A&O x 3 Dx/Plan (1) Atrial fibrillation Code(s): I48.91 - UNSPECIFIED ATRIAL FIBRILLATION Status: Acute Qualifiers: Atrial fibrillation type: paroxysmal Qualified Code(s): I48.0 - Paroxysmal atrial fibrillation (2) HTN (hypertension) Code(s): I10 - ESSENTIAL (PRIMARY) HYPERTENSION Status: Acute Qualifiers: Hypertension type: essential hypertension Qualified Code(s): I10 - Essential (primary) hypertension (3) Hypothyroid Code(s): E03.9 - HYPOTHYROIDISM, UNSPECIFIED Status: Acute - Plan cont current plan of care, out of bed/ambulate * Continue with PO Amiodarone. * Coumadin with Lovenox bridging * Daily INR (1.3)
[2016-12-16] MEDS: Famotidine 20 MG TAB PO SCH ×2 (10:36→20:21)
[2016-12-16] MEDS: Clopidogrel Bisulfate 75 MG TAB PO SCH (10:36)
[2016-12-16] MEDS: Amlodipine 5 MG TAB PO SCH ×2 (10:36→20:21)
[2016-12-16] MEDS: Aspirin 81 mg Enteric Coated Tablet PO SCH (10:36)
[2016-12-16] MEDS: Enoxaparin Sodium 80 MG/0.8 ML SYRINGE SC SCH ×2 (10:37→20:20)
--- NOTE | 2016-12-16 14:21 | PDOC.CTH ---
Cardiology Progress Note - Objective Vital Signs Temp Pulse Resp BP Pulse Ox 12/16/16 10:36 66 12/16/16 07:20 98.7 F 66 18 129/76 98 12/16/16 04:00 97.6 F 74 18 186/77 H 98 Weight 150 lb 12/15/16 12/16/16 12/17/16 06:59 06:59 06:59 Intake Total 720 1200 Output Total 500 1500 Balance 220 -300 - Labs Result Diagrams: 12/14/16 04:17 12/14/16 04:17 Troponin/CKMB CK-MB (CK-2) 2.1 ng/mL (0-6.6) 12/14/16 04:17 Troponin I 0.029 ng/mL (< 0.028) H 12/14/16 04:17 - Assessment/Plan (1) Atrial fibrillation Code(s): I48.91 - UNSPECIFIED ATRIAL FIBRILLATION Status: Acute Qualifiers: Atrial fibrillation type: paroxysmal Qualified Code(s): I48.0 - Paroxysmal atrial fibrillation (2) HTN (hypertension) Code(s): I10 - ESSENTIAL (PRIMARY) HYPERTENSION Status: Acute Qualifiers: Hypertension type: essential hypertension Qualified Code(s): I10 - Essential (primary) hypertension (3) Hypothyroid Code(s): E03.9 - HYPOTHYROIDISM, UNSPECIFIED Status: Acute - Plan cont current plan of care, out of bed/ambulate Continue with PO Amiodarone. Coumadin with Lovenox bridging Daily INR (1.3)
--- NOTE | 2016-12-16 14:21 | PDOC.CTH ---
<Johanna Velazquez - Last Filed: 12/16/16 14:22> Cardiology Progress Note - Subjective The pt seen and examined. No overnight events. No cardiac complaints. She walks without any difficulties. She slept well last night. - Objective Vital Signs Temp Pulse Resp BP Pulse Ox 12/16/16 10:36 66 12/16/16 07:20 98.7 F 66 18 129/76 98 12/16/16 04:00 97.6 F 74 18 186/77 H 98 Weight 150 lb 12/15/16 12/16/16 12/17/16 06:59 06:59 06:59 Intake Total 720 1200 Output Total 500 1500 Balance 220 -300 - Physical Examination General/Neuro: alert & oriented x3 Neck: no JVD present Lungs: CTA Heart: RRR Abdomen: soft Extremities: other: (No edema) - Telemetry Telemetry Rhythm: [id number] - Labs Result Diagrams: 12/14/16 04:17 12/14/16 04:17 Troponin/CKMB CK-MB (CK-2) 2.1 ng/mL (0-6.6) 12/14/16 04:17 Troponin I 0.029 ng/mL (< 0.028) H 12/14/16 04:17 - Assessment/Plan 1. Afib with RVR - Remain SR with well controlled HR with Amiodarone 200mg BID; on Coumadin, which dosage managed by pharmacy: INR today was 1.3 2. with s/p TAVR in 09/2016 - Stable with Plavix; cont. monitor 3. HTN - stable with current medication; cont. monitor 4. Dyslipidemia - on Statin med; 5. Hypothyroid - managed by PCP MAR reviewed Review of Systems - Review of Systems Constitutional: reports: no symptoms reported EENTM: reports: no symptoms reported Respiratory: reports: no symptoms reported Cardiac (ROS): reports: no symptoms reported ABD/GI: reports: no symptoms reported : reports: no symptoms reported Musculoskeletal: reports: no symptoms reported Skin: reports: no symptoms reported Neurological: reports: no symptoms reported <Harish Ventura - Last Filed: 12/16/16 18:22> Cardiology Progress Note - Objective Vital Signs Temp Pulse Resp BP Pulse Ox 12/16/16 15:20 98.4 F 70 12 142/66 H 94 L 12/16/16 10:36 66 12/16/16 07:20 98.7 F 66 18 129/76 98 Weight 150 lb 12/15/16 12/16/16 12/17/16 06:59 06:59 06:59 Intake Total 720 1200 Output Total 500 1500 Balance 220 -300 - Labs Result Diagrams: 12/14/16 04:17 12/14/16 04:17 Troponin/CKMB CK-MB (CK-2) 2.1 ng/mL (0-6.6) 12/14/16 04:17 Troponin I 0.029 ng/mL (< 0.028) H 12/14/16 04:17 - Assessment/Plan She was seen and eval. by me. No cardiac complaints. She remains in NSR. Coumadin has been started. Since she has not had any further Afib., she will be safe tod/c home in AM and can have the ENR followed as an outpt. She does not have to be therapeutic prior to d/c. I will see her back in 2-4 weeks in the clinic. The INR can be followed by the coumadin clinic. Hopefully if she remains in NSR for the next several weeks the coumadin can be d/c'd.
[2016-12-16] MEDS ORDERED: Warfarin Sodium 5 MG TAB PO SCH (17:00)
[2016-12-16] MEDS ORDERED: Warfarin Sodium 7.5 MG TAB PO SCH (17:00)
[2016-12-16] MEDS: Simvastatin 5 MG TAB PO SCH (20:20)
[2016-12-16] MEDS: ALPRAZolam 0.5 MG TAB PO PRN (21:55)
[2016-12-17 05:33] LABS: Prothrombin Time 21.1 SEC (12.0-14.7)
--- NOTE | 2016-12-17 09:31 | PDOC.PN ---
- Subjective Encounter Start Date: 12/17/16 Encounter Start Time: 10:00 Subjective: No complaint. Ready to go home. Had questions about coumadin diet which -: I answered and she has diet information sheet. - Objective Resuscitation Status: Resuscitation Status FULL:Full Resuscitation MAR Reviewed: Yes Vital Signs & Weight: Vital Signs (12 hours) Temp Pulse Resp BP Pulse Ox 12/17/16 07:40 97.2 F L 61 18 139/65 98 12/17/16 04:00 97.4 F L 49 L 18 150/72 H 97 12/17/16 00:00 97.6 F 78 18 149/70 H 96 Weight Weight 150 lb I&O: 12/16/16 12/17/16 12/18/16 06:59 06:59 06:59 Intake Total 1200 300 Output Total 1500 450 Balance -300 -150 Result Diagrams: 12/14/16 04:17 12/14/16 04:17 Phys Exam - Physical Examination Constitutional: NAD HEENT: PERRLA, moist MMs Neck: no JVD Respiratory: no wheezing, no rales, no rhonchi Cardiovascular: RRR, no significant murmur Gastrointestinal: soft Musculoskeletal: no edema Neurological: non-focal, moves all 4 limbs Psychiatric: normal affect, A&O x 3 Dx/Plan (1) Paroxysmal atrial fibrillation Code(s): I48.0 - PAROXYSMAL ATRIAL FIBRILLATION Status: Resolved Comment: back in NSR. D/c home on Amiodarone and Coumadin. Recheck INR on Tuesday. (2) HTN (hypertension) Code(s): I10 - ESSENTIAL (PRIMARY) HYPERTENSION Status: Chronic Qualifiers: Hypertension type: essential hypertension Qualified Code(s): I10 - Essential (primary) hypertension Comment: decent control (3) Hypothyroid Code(s): E03.9 - HYPOTHYROIDISM, UNSPECIFIED Status: Chronic (4) S/p TAVR (transcatheter aortic valve replacement), bioprosthetic Code(s): Z95.3 - PRESENCE OF XENOGENIC HEART VALVE Status: Chronic - Plan cont current plan of care Coumadin clinic on Tuesday to recheck INR. Resume Lisinopril. Stop Norvasc. -: Home on Diltiazem. F/u with Cardiology- Dr. Ventura in 2-3 weeks. * . - Discharge Day Encounter end time: 10:35
[2016-12-17] MEDS: Aspirin 81 mg Enteric Coated Tablet PO SCH (09:33)
[2016-12-17] MEDS: Clopidogrel Bisulfate 75 MG TAB PO SCH (09:33)
[2016-12-17] MEDS: Famotidine 20 MG TAB PO SCH (09:33)
[2016-12-17] MEDS: Amlodipine 5 MG TAB PO SCH (09:33)
[2016-12-17] MEDS: Enoxaparin Sodium 80 MG/0.8 ML SYRINGE SC SCH (09:34)
--- NOTE | 2016-12-17 12:18 | PDOC.CTH ---
<Johanna Velazquez - Last Filed: 12/17/16 12:18> Cardiology Progress Note - Subjective The pt seen and examined. No overnight events. No cardiac complaints. She stated she is ready to go home - Objective Vital Signs Temp Pulse Resp BP BP Pulse Ox 12/17/16 09:33 61 139/65 12/17/16 07:40 97.2 F L 61 18 139/65 98 12/17/16 04:00 97.4 F L 49 L 18 150/72 H 97 Weight 150 lb 12/16/16 12/17/16 12/18/16 06:59 06:59 06:59 Intake Total 1200 300 240 Output Total 1500 450 Balance -300 -150 240 - Physical Examination General/Neuro: alert & oriented x3 Neck: no JVD present Lungs: CTA Heart: RRR Abdomen: soft Extremities: other: (No edema) - Telemetry Telemetry Rhythm: SR with PACs 60s - Labs Result Diagrams: 12/14/16 04:17 12/14/16 04:17 Troponin/CKMB CK-MB (CK-2) 2.1 ng/mL (0-6.6) 12/14/16 04:17 Troponin I 0.029 ng/mL (< 0.028) H 12/14/16 04:17 - Assessment/Plan 1. Afib with RVR - Remain SR with well controlled HR with Amiodarone 200mg BID; on Coumadin; The pt will f/u with her PCP; INR today was 1.8 2. with s/p TAVR in 09/2016 - Stable with Plavix; cont. monitor 3. HTN - stable with current medication; cont. monitor 4. Dyslipidemia - on Statin med; 5. Hypothyroid - managed by PCP MAR reviewed *From cardiac standpoint, the pt is stable to d/c home; the pt f/u with Dr Ventura ' office within 2-3wks. Review of Systems - Review of Systems Constitutional: reports: no symptoms reported EENTM: reports: no symptoms reported Respiratory: reports: no symptoms reported Cardiac (ROS): reports: no symptoms reported ABD/GI: reports: no symptoms reported : reports: no symptoms reported Musculoskeletal: reports: no symptoms reported Skin: reports: no symptoms reported Neurological: reports: no symptoms reported <Harish Ventura - Last Filed: 12/17/16 13:01> Cardiology Progress Note - Objective Vital Signs Temp Pulse Resp BP BP Pulse Ox 12/17/16 12:14 98.6 F 69 17 166/69 H 97 12/17/16 09:33 61 139/65 12/17/16 07:40 97.2 F L 61 18 139/65 98 12/17/16 04:00 97.4 F L 49 L 18 150/72 H 97 Weight 150 lb 12/16/16 12/17/16 12/18/16 06:59 06:59 06:59 Intake Total 1200 300 240 Output Total 1500 450 Balance -300 -150 240 - Labs Result Diagrams: 12/14/16 04:17 12/14/16 04:17 Troponin/CKMB CK-MB (CK-2) 2.1 ng/mL (0-6.6) 12/14/16 04:17 Troponin I 0.029 ng/mL (< 0.028) H 12/14/16 04:17 - Assessment/Plan Pt. was seen and eval. by me. No complaints. The INR is increasing. She can be discharged to home and the INR can be monitored as an outpt. i agree with the A/ P by the [employer] TEACHER.
[2016-12-17 12:43] VITALS: BP 166/69; TEMP 98.6
--- NOTE | 2016-12-17 13:39 | DIS ---
PRIMARY CARE PHYSICIAN: Dr. Rodolfo Marquez DIAGNOSES ON ADMISSION: 1. Paroxysmal atrial fibrillation. 2. Hypertension. 3. Osteopenia. 4. Hypothyroidism. 5. History of aortic valve replacement. DIAGNOSES ON DISCHARGE: 1. Paroxysmal atrial fibrillation, back in sinus rhythm. 2. Hypertension. 3. Osteopenia. 4. Hypothyroidism. 5. History of aortic valve replacement. CONSULTATIONS: Cardiology, Dr. Luis Hills for Dr. Ventura. PROCEDURES: None. PERTINENT LABORATORY: Indeterminate troponins never elevated, normal TSH, normal creatinine. SUMMARY OF HOSPITAL COURSE: This is an 81-year-old female with history of hypertension, aortic valv e replacement, hypothyroidism, osteopenia and previous atrial fibrillation who was admitted a week p revious for a couple days for atrial fibrillation with RVR, seen by Dr. Ventura, but was spontaneously converted and was sent home. She returned to the hospital with palpitations, found to be in atrial fibrillation again. The patient was given Cardizem boluses and then put on a Cardizem drip. She wa s eventually also given amiodarone and then converted back to normal sinus rhythm. The patient was started on Coumadin. Dr. Hills was consulted, precision layout worker for Dr. Ventura and then Dr. Ventura saw the pat ient before the discharge and determined to continue patient on outpatient Cardizem orally, amiodaro ne and to continue with Coumadin, it is not yet therapeutic, so she will need an INR check in a coup le of days. The patient is doing well the day of discharge. Discharged home. DISCHARGE MANAGEMENT: Discharged home. DISCHARGE MEDICATIONS: 1. Amiodarone 200 mg twice a day, 60 tablets dispensed. 2. Aspirin 81 mg daily. 3. Cardizem 120 mg daily, 30 tablets dispensed. 4. Lisinopril 20 mg twice a day. 5. Warfarin 5 mg daily, 30 tablets dispensed. 6. Plavix 75 mg daily, is a home medicines. 7. Levothyroxine 50 mcg daily. 8. Simvastatin 10 mg at night. 9. Meloxicam daily. 10. Discontinue amlodipine. FOLLOWUP: The patient is to follow up with her PCP, Dr. Marquez in [address] Ventura, Evonne devi in 2-3 weeks. She also needs to have an INR checked on Tuesday either at Dr. Marquez's office or if that is not possible to come back into town and get it done at [facility] here. ACTIVITIES: As tolerated. DIET: Coumadin prudent, healthy heart, no sodium added diet.
[2016-12-17] MEDS ORDERED: Warfarin Sodium 5 MG TAB PO SCH (17:00)
== END 2016-12-17 13:04 | disposition home or self-care (01) | DRG 309 ==
LOC: ERS 16:19 → 2NO 17:31
PROVIDERS: ADMIT Internal Medicine Infectious Disease; ATTEND Internal Medicine Infectious Disease
DX: I48.0 Paroxysmal atrial fibrillation (principal); I24.8 Other forms of acute ischemic heart disease; I35.0 Nonrheumatic aortic (valve) stenosis; I10 Essential (primary) hypertension; E78.5 Hyperlipidemia, unspecified; M85.80 Other specified disorders of bone density and structure, unspecified site; E03.9 Hypothyroidism, unspecified; Z95.3 Presence of xenogenic heart valve; Z96.653 Presence of artificial knee joint, bilateral; Z88.0 Allergy status to penicillin; Z88.8 Allergy status to other drugs, medicaments and biological substances; Z79.82 Long term (current) use of aspirin
CPT/HCPCS: 36415; 80048; 80076; 82553; 83735; 84443; 84484; 85025; 85610; 93005; 96365; 96366; 96372; A4216; J0282; J1650; J2543; J7050; J7070